=== PATIENT | male | born 1955 | race Native Hawaiian/Other Pacific Islander ===

== ENCOUNTER 2017-05-23 06:58 | Outpatient (CLI) | payer OTHER | END 2017-05-23 08:00 | disposition home or self-care (01) | LOC: LABW 06:58 → LAB 15:31 | PROVIDERS: Internal Medicine | DX: I10 Essential (primary) hypertension (principal); E78.2 Mixed hyperlipidemia; E11.9 Type 2 diabetes mellitus without complications | CPT/HCPCS: 80053; 80061; 81000; 82043; 82570; 83036 ==

== ENCOUNTER 2017-08-20 08:06 | Outpatient (CLI) | payer OTHER | END 2017-08-20 19:09 | LOC: CT 08:06 | DX: I71.2 Thoracic aortic aneurysm, without rupture (principal) | CPT/HCPCS: 36415; 82565; 84520; Q9963 ==

== ENCOUNTER 2017-11-21 06:13 | Outpatient (CLI) | payer OTHER ==
[2017-11-21 07:14] LABS: PLATELET COUNT 347 K/uL (142-355)
[2017-11-21 07:19] LABS: POTASSIUM 3.7 mmol/L (3.6-5.2)
== END 2017-11-21 19:34 | disposition home or self-care (01) ==
LOC: LABW 06:13
PROVIDERS: Internal Medicine
DX: E11.9 Type 2 diabetes mellitus without complications (principal); L40.9 Psoriasis, unspecified; I10 Essential (primary) hypertension
CPT/HCPCS: 36415; 80053; 83036; 85027; 86039

== ENCOUNTER 2018-09-14 07:59 | Outpatient (CLI) | payer OTHER | END 2018-09-14 18:59 | disposition home or self-care (01) | LOC: NM 07:59 | DX: I25.10 Atherosclerotic heart disease of native coronary artery without angina pectoris (principal); I71.4 Abdominal aortic aneurysm, without rupture | CPT/HCPCS: A9500; J2785 ==

== ENCOUNTER 2018-09-21 09:06 | Outpatient (CLI) | payer OTHER | END 2018-09-21 19:43 | disposition home or self-care (01) | LOC: CT 09:06 | DX: I25.10 Atherosclerotic heart disease of native coronary artery without angina pectoris (principal); I71.4 Abdominal aortic aneurysm, without rupture | CPT/HCPCS: 36415; 82565; 84520; Q9963 ==

== ENCOUNTER 2019-10-29 15:48 | Emergency (ER) | payer OTHER ==
[~2019-10-29] VITALS: Ht 185.4 cm; Wt 98.9 kg
[2019-10-29 16:11] LABS: PLATELET COUNT 452 K/uL (142-355)
[2019-10-29 16:22] LABS: POTASSIUM 3.8 mmol/L (3.6-5.2); SODIUM 142 mmol/L (136-145)
[2019-10-29 17:00] VITALS: TEMP 98.3
[2019-10-29 18:00] VITALS: BP 144/78
== END 2019-10-29 18:49 | disposition short-term general hospital (02) ==
LOC: ED 15:48
PROVIDERS: Family Medicine
DX: I63.89 Other cerebral infarction (principal)
CPT/HCPCS: 36415; 80053; 82550; 82553; 83605; 84484; 85027; 92977; 93005; 99285; J2997

== ENCOUNTER 2019-11-08 14:41 | Inpatient (IN) | payer OTHER | END 2019-11-29 14:04 | disposition still patient (30) | LOC: PAVC 14:41 | PROVIDERS: ADMIT Family Medicine | DX: I63.511 Cerebral infarction due to unspecified occlusion or stenosis of right middle cerebral artery (principal); I69.354 Hemiplegia and hemiparesis following cerebral infarction affecting left non-dominant side; R47.1 Dysarthria and anarthria; M62.81 Muscle weakness (generalized); Z74.1 Need for assistance with personal care; R26.89 Other abnormalities of gait and mobility; R48.8 Other symbolic dysfunctions; R27.8 Other lack of coordination; E11.9 Type 2 diabetes mellitus without complications; I71.4 Abdominal aortic aneurysm, without rupture | CPT/HCPCS: 80053; 80061; 81000; 82306; 82607; 82728; 83036; 83540; 83880; 85027; 87077; 87081; 87086; 87088; 87186; 87635; G0283-GP; U0003 ==

== ENCOUNTER 2019-11-11 11:34 | Outpatient (CLI) | payer OTHER ==
[2019-11-11 12:17] LABS: PLATELET COUNT 495 K/uL (142-355)
== END 2019-11-11 23:02 | disposition home or self-care (01) ==
LOC: LAB 11:34
PROVIDERS: Family Medicine
DX: R79.89 Other specified abnormal findings of blood chemistry (principal)
CPT/HCPCS: 85027

== ENCOUNTER 2019-11-12 11:24 | Outpatient (CLI) | payer OTHER ==
[2019-11-12 15:51] LABS: PLATELET COUNT 500 K/uL (142-355)
== END 2019-11-12 18:50 | disposition home or self-care (01) ==
LOC: LAB 11:24
PROVIDERS: Family Medicine
DX: R79.89 Other specified abnormal findings of blood chemistry (principal)
CPT/HCPCS: 85027

== ENCOUNTER 2019-11-29 14:53 | Inpatient (IN) | payer OTHER | END 2019-12-29 14:10 | disposition still patient (30) | LOC: PAVC 14:53 | PROVIDERS: ADMIT Family Medicine | DX: I63.511 Cerebral infarction due to unspecified occlusion or stenosis of right middle cerebral artery (principal); I69.354 Hemiplegia and hemiparesis following cerebral infarction affecting left non-dominant side; R47.1 Dysarthria and anarthria; M62.81 Muscle weakness (generalized); Z74.1 Need for assistance with personal care; R26.89 Other abnormalities of gait and mobility; R48.8 Other symbolic dysfunctions; R27.8 Other lack of coordination; E11.9 Type 2 diabetes mellitus without complications; I71.4 Abdominal aortic aneurysm, without rupture ==

== ENCOUNTER 2019-12-14 08:02 | Outpatient (CLI) | payer OTHER ==
[2019-12-14 08:22] LABS: PLATELET COUNT 529 K/uL (142-355)
[2019-12-14 08:32] LABS: POTASSIUM 4.2 mmol/L (3.6-5.2)
== END 2019-12-14 20:09 | disposition home or self-care (01) ==
LOC: LAB 08:02
PROVIDERS: Family Medicine
DX: R50.9 Fever, unspecified (principal)
CPT/HCPCS: 80053; 85027

== ENCOUNTER 2019-12-29 15:11 | Inpatient (IN) | payer OTHER | END 2020-01-29 08:00 | disposition still patient (30) | LOC: PAVC 15:11 | PROVIDERS: ADMIT Family Medicine | DX: I63.511 Cerebral infarction due to unspecified occlusion or stenosis of right middle cerebral artery (principal); I69.354 Hemiplegia and hemiparesis following cerebral infarction affecting left non-dominant side; R47.1 Dysarthria and anarthria; M62.81 Muscle weakness (generalized); Z74.1 Need for assistance with personal care; R26.89 Other abnormalities of gait and mobility; R48.8 Other symbolic dysfunctions; R27.8 Other lack of coordination; E11.9 Type 2 diabetes mellitus without complications; I71.4 Abdominal aortic aneurysm, without rupture ==

== ENCOUNTER 2020-01-27 06:39 | Outpatient (CLI) | payer OTHER | END 2020-01-27 23:52 | disposition home or self-care (01) | LOC: LAB 06:39 | DX: Z87.440 Personal history of urinary (tract) infections (principal); R82.998 Other abnormal findings in urine | CPT/HCPCS: 81000; 87077; 87086; 87088; 87186 ==

== ENCOUNTER 2020-01-29 09:00 | Inpatient (IN) | payer OTHER | END 2020-01-31 17:30 | disposition home or self-care (01) | LOC: PAVC 09:00 | PROVIDERS: ADMIT Family Medicine | DX: I63.511 Cerebral infarction due to unspecified occlusion or stenosis of right middle cerebral artery (principal); I69.354 Hemiplegia and hemiparesis following cerebral infarction affecting left non-dominant side; R47.1 Dysarthria and anarthria; M62.81 Muscle weakness (generalized); Z74.1 Need for assistance with personal care; R26.89 Other abnormalities of gait and mobility; R48.8 Other symbolic dysfunctions; R27.8 Other lack of coordination; E11.9 Type 2 diabetes mellitus without complications; I71.4 Abdominal aortic aneurysm, without rupture ==

== ENCOUNTER 2020-09-04 08:30 | Outpatient (CLI) | payer OTHER ==
[~2020-09-04] VITALS: Ht 182.9 cm; Wt 93.9 kg
== END 2020-09-04 22:40 | disposition home or self-care (01) ==
LOC: CT 08:30 → NM 09:15 → CT 22:40
PROVIDERS: ATTEND Nurse Practitioner Family
DX: I77.9 Disorder of arteries and arterioles, unspecified (principal); I71.2 Thoracic aortic aneurysm, without rupture
CPT/HCPCS: 36415; 82565; 84520; A9500; J2785

== ENCOUNTER 2020-09-07 08:03 | Outpatient (CLI) | payer OTHER | END 2020-09-07 18:56 | disposition home or self-care (01) | LOC: CT 08:03 | PROVIDERS: ATTEND Nurse Practitioner Family | DX: I71.2 Thoracic aortic aneurysm, without rupture (principal) | CPT/HCPCS: 36415; 82565; 84520; Q9963 ==

== ENCOUNTER 2021-08-30 08:45 | Outpatient (CLI) | payer OTHER | END 2021-08-30 19:18 | disposition home or self-care (01) | LOC: CT 08:45 | PROVIDERS: ATTEND Internal Medicine Cardiovascular Disease | DX: I71.4 Abdominal aortic aneurysm, without rupture (principal) | CPT/HCPCS: 36415; 82565; 84520 ==

== ENCOUNTER 2022-06-06 08:45 | Outpatient (CLI) | payer OTHER | END 2022-06-06 19:28 | disposition home or self-care (01) | LOC: CT 08:45 | PROVIDERS: ATTEND Nurse Practitioner Family | DX: I71.20 Thoracic aortic aneurysm, without rupture, unspecified (principal); I71.21 Aneurysm of the ascending aorta, without rupture | CPT/HCPCS: 36415; 82565; 84520; Q9963 ==